=== PATIENT | male | born 1995 | race Caucasian/White ===

== ENCOUNTER → 2016-08-09 | Outpatient (CLI) | payer BC | LOC: BHSO 12:37 | DX: F28 Other psychotic disorder not due to a substance or known physiological condition (principal) ==

== ENCOUNTER → 2016-11-08 | Outpatient (CLI) | payer BC | LOC: BHSO 12:54 | DX: F29 Unspecified psychosis not due to a substance or known physiological condition (principal) ==

== ENCOUNTER → 2017-02-07 | Outpatient (CLI) | payer BC | LOC: BHSO 13:15 | DX: F29 Unspecified psychosis not due to a substance or known physiological condition (principal) ==

== ENCOUNTER → 2017-08-07 | Outpatient (CLI) | payer BC | LOC: BHSO 14:45 | DX: F20.9 Schizophrenia, unspecified (principal) | CPT/HCPCS: G0463 ==

== ENCOUNTER → 2018-08-20 | Outpatient (CLI) | payer BC | LOC: BHSO 14:01 | DX: F20.9 Schizophrenia, unspecified (principal) | CPT/HCPCS: G0463 ==

== ENCOUNTER → 2019-02-19 | Outpatient (CLI) | payer BC | LOC: BHSO 14:07 | DX: F29 Unspecified psychosis not due to a substance or known physiological condition (principal) | CPT/HCPCS: G0463 ==